=== PATIENT | male | born 1970 | race Caucasian/White ===

== ENCOUNTER 2020-10-06 08:18 | Day surgery (SDC) | payer OTHER ==
[~2020-10-06 08:18] MED LIST: Lactated Ringers 1,000 ML IV SCH
[2020-10-06] MEDS ORDERED: Citric Acid/Sodium Citrate Solution 30 ML Cup PO ONE (08:59)
[2020-10-06] MEDS ORDERED: Propofol 200 MG/20 ML SDV ONE ×3 (09:25→10:11)
[2020-10-06] MEDS ORDERED: fentaNYL 100 MCG/2 ML SDV ONE (09:25)
--- NOTE | 2020-10-06 13:50 | OR ---
DATE OF SURGERY: 10/06/2020. REFERRING PROVIDER: Quin Cross MD PRE-OPERATIVE DIAGNOSIS: Screening colonoscopy. This is the patient's first colonoscopy. There is no family history of colon cancer. POST-OPERATIVE DIAGNOSES: 1. Two tiny polyps removed using cold forceps. a. 2 mm polyp at 60 cm. b. 2 mm polyp at 12 cm. 2. Mild left-sided diverticulosis. 3. Minimal hemorrhoids. 4. Normal-appearing distal ileum. PROCEDURE: Colonoscopy with polypectomy x2 using cold forceps. SURGEON: Cheo Long M.D. ANESTHESIA: Monitored anesthesia care. BOWEL PREP: Fair. Did require significant amount of irrigation and suctioning and had the oily consistency which did cause the film on the end of the scope for much of the procedure. Gabriele is a 50-year-old male who was brought to the endoscopy suite after discussing risks and benefits of the procedure. Informed consent was obtained for conscious sedation and colonoscopy with or without biopsy and/or polypectomy. We also discussed possibility of missed lesions. Pre-procedure exam was unremarkable. IV, oxygen, and monitors were placed. The patient was placed in the left lateral decubitus position. Sedation was administered and a digital rectal exam was performed and unremarkable except for maybe some minimal external hemorrhoids. Colonoscope was passed into the rectum and slowly advanced all the way to the cecum. Cecum was viewed and photographed. Ileocecal valve was intubated and distal ileum was normal in appearance. The colonoscope was slowly withdrawn and the mucosa was closed observed in a direct circumferential manner. The ascending colon was unremarkable. The transverse colon revealed 2 mm polyp at 60 cm, removed using cold forceps. Descending colon and sigmoid colon revealed some mild diverticulosis. The rectosigmoid junction revealed 2 mm polyp at 12 cm, removed using cold forceps. Retroflexion was performed and rectal mucosa was unremarkable. Scope was removed. The patient tolerated the procedure well. The patient was monitored until that baseline status. Discharge instructions were reviewed and the patient was discharged in good condition. COMPLICATIONS: None. TOTAL TIME: 44 minutes. ESTIMATED BLOOD LOSS: Less than 1 mL. RECOMMENDATIONS/FOLLOW-UP: We will await results of path report to determine ideal followup interval. I would like to kindly thank Dr. Cross for this referral. DMB: 10/06/2020 10:43:58 MODL: 10/06/2020 11:12:27 /[id number]
== END 2020-10-06 11:45 | disposition home or self-care (01) ==
LOC: VM.SDS 08:18
PROVIDERS: ATTEND Family Medicine
DX: Z12.11 Encounter for screening for malignant neoplasm of colon (principal); D12.6 Benign neoplasm of colon, unspecified; K57.30 Diverticulosis of large intestine without perforation or abscess without bleeding; K64.4 Residual hemorrhoidal skin tags; I10 Essential (primary) hypertension; E78.2 Mixed hyperlipidemia; F32.9 Major depressive disorder, single episode, unspecified; R36.9 Urethral discharge, unspecified; K21.9 Gastro-esophageal reflux disease without esophagitis; H90.2 Conductive hearing loss, unspecified; Z79.899 Other long term (current) drug therapy
CPT/HCPCS: 00812; A9270-GY; J2704; J3010; J7120